=== PATIENT | female | born 1965 | race Caucasian/White ===

== ENCOUNTER → 2021-08-02 07:41 | Outpatient (CLI) | payer BC, SELFPAY ==
--- NOTE | 2021-08-02 | DI.MRI.S_ITS ---
PROCEDURE: MR CERVICAL SPINE WO CON INDICATIONS: Radiculopathy, cervical region TECHNIQUE: Noncontrast sagittal T1 spin echo and T2 fast spin echo, sagittal STIR, foraminal oblique sagittal T2 fast spin echo, and axial gradient echo or T2 fast spin echo through the cervical spine. COMPARISON: None. FINDINGS: Normal cervical spine vertebral body height and alignment. No suspicious focal marrow signal abnormality or bone marrow edema. Prevertebral and paraspinous soft tissues are within normal limits. Normal morphology and signal intensity of the cervical cord. There is no syrinx. C2-C3: Moderate neural foraminal narrowing on the right due to facet and uncovertebral hypertrophy. No neural foraminal narrowing on the left. No spinal canal stenosis. C3-C4: No spinal canal stenosis. Mild bilateral neural foraminal narrowing due to facet and uncovertebral spurring. C4-C5: Mild bilateral neural foraminal narrowing due to facet and uncovertebral hypertrophy. No spinal canal stenosis. Shallow disc bulge and osteophytic ridging. C5-C6: No spinal canal stenosis despite shallow posterior disc-osteophyte complex. Moderate right and mild left neural foraminal stenosis due to facet and uncovertebral hypertrophy. C6-C7: Mild bilateral neural foraminal stenosis due to facet and uncovertebral hypertrophy. Posterior disc osteophyte complex without spinal canal stenosis or mass effect upon the cord. C7-T1: No spinal canal or neural foraminal stenosis. IMPRESSION: Moderate neural foraminal narrowing on the right at C2-C3 and at C5-C6. Other mild degenerative changes as described above. Dictated by: Manohar Waters M.D. on 08/02/2021 at 11:00 Approved by: Manohar Waters M.D. on 08/02/2021 at 11:03
== END ==
PROVIDERS: Referring Provider Physical Medicine & Rehabilitation; Visit Provider Physical Medicine & Rehabilitation
DX: M47.22 Other spondylosis with radiculopathy, cervical region (principal); M48.02 Spinal stenosis, cervical region
CPT/HCPCS: 72141

== ENCOUNTER → 2022-01-08 09:00 | Outpatient (CLI) | payer BC, SELFPAY ==
--- NOTE | 2022-01-08 | DI.MG.S_ITS ---
BILATERAL DIGITAL SCREENING MAMMOGRAM 3D/2D WITH CAD: 01/08/2022 CLINICAL: Routine screening. Family history of breast cancer. Comparison is made to exam dated: 11/09/2020 mammogram - outside location. The tissue of both breasts is heterogeneously dense. This may lower the sensitivity of mammography. Current study was also evaluated with a Computer Aided Detection (CAD) system. No significant masses, calcifications, or other findings are seen in either breast. There has been no significant interval change. IMPRESSION: NEGATIVE There is no mammographic evidence of malignancy. A 1 year screening mammogram is recommended. Based on the Tyrer Cuzick model (a risk assessment model) the patient's lifetime risk is 14.8% and her 10 year risk is 5.2%. According to the ACR, ACS, and NCCN guidelines, an annual breast MRI exam along with mammogram is recommended if the patient's lifetime risk is 20% or greater. This exam was interpreted at Station ID: [id number]. NOTE: For mammograms, a report in lay terms will be sent to the patient. Approximately 15% of breast malignancies will not be visualized mammographically. In the management of a palpable breast mass, a negative mammogram must not discourage biopsy of a clinically suspicious lesion. Electronically Signed By: Russell moore/mark:01/10/2022 14:17:35 letter sent: Normal Exam ACR BI-RADS Category 1: Negative [id number]
== END ==
PROVIDERS: PCP Family Medicine; Referring Provider Family Medicine; Visit Provider Family Medicine
DX: Z12.31 Encounter for screening mammogram for malignant neoplasm of breast (principal); Z80.3 Family history of malignant neoplasm of breast
CPT/HCPCS: 77063; 77067

== ENCOUNTER → 2024-02-17 08:29 | Outpatient (CLI) | payer BC, SELFPAY ==
--- NOTE | 2024-02-17 08:30 | DI.MG.S_ITS ---
BILATERAL DIGITAL SCREENING MAMMOGRAM 3D/2D WITH CAD: 02/17/2024 CLINICAL: Routine screening. Family history of breast cancer. Comparison is made to exams dated: 01/08/2022 mammogram - [facility] and 11/09/2020 mammogram - outside [facility]. Both breasts are heterogeneously dense, which may obscure small masses (category c / 51-75% glandular tissue). Current study was also evaluated with a Computer Aided Detection (CAD) system. There is a focal asymmetry in the right breast lower inner quadrant at middle depth. No other significant masses, calcifications, or other findings are seen in either breast. IMPRESSION: INCOMPLETE: NEEDS ADDITIONAL IMAGING EVALUATION The focal asymmetry in the right breast is indeterminate. A diagnostic mammogram and ultrasound is recommended. Based on the Tyrer Cuzick model (a risk assessment model) the patient's lifetime risk is 14.4% and her 10 year risk is 5.6%. According to the ACR, ACS, and NCCN guidelines, an annual breast MRI exam along with mammogram is recommended if the patient's lifetime risk is 20% or greater. This exam was interpreted at Station ID: [id number]. NOTE: For mammograms, a report in lay terms will be sent to the patient. Approximately 15% of breast malignancies will not be visualized mammographically. In the management of a palpable breast mass, a negative mammogram must not discourage biopsy of a clinically suspicious lesion. Electronically Signed By: Hiral Hui M.D., Ph.D. eb/:02/20/2024 09:23:57 letter sent: Additional Imaging Needed ACR BI-RADS Category 0: Incomplete 3340F
== END ==
PROVIDERS: PCP Family Medicine; Referring Provider Family Medicine; Visit Provider Family Medicine
DX: Z12.31 Encounter for screening mammogram for malignant neoplasm of breast (principal); Z80.3 Family history of malignant neoplasm of breast
CPT/HCPCS: 77063; 77067

== ENCOUNTER → 2024-03-11 13:41 | Outpatient (CLI) | payer BC, SELFPAY ==
--- NOTE | 2024-03-11 13:42 | DI.US.S_ITS ---
LIMITED ULTRASOUND OF RIGHT BREAST: 03/11/2024 CLINICAL: Patient returns today to evaluate a focal asymmetry in the right breast. Comparison is made to exams dated: 03/11/2024 mammogram, 02/17/2024 mammogram, 01/08/2022 mammogram - [facility], and 11/09/2020 mammogram - outside location. Color flow and real-time ultrasound of the right breast 4 o'clock region were performed. Kimbrough scale images of the real-time examination were reviewed. There is a benign 0.6 cm simple cyst in the right breast at 4 o'clock, 3 cm from the nipple. This correlates with mammography findings. IMPRESSION: BENIGN Right breast 0.6 cm simple cyst at 4 o'clock position is benign. No mammographic or no sonographic evidence of malignancy. A 1 year screening mammogram is recommended. Findings and recommendations were conveyed to the patient during today's evaluation. This exam was interpreted at Station ID: [id number]. Electronically Signed By: Hiral Hui M.D., Ph.D. eb/:03/12/2024 17:19:02 letter sent: Normal Exam ACR BI-RADS Category 2: Benign
--- NOTE | 2024-03-11 13:42 | DI.MG.S_ITS ---
UNILATERAL RIGHT DIGITAL DIAGNOSTIC MAMMOGRAM 3D/2D: 03/11/2024 CLINICAL: Additional evaluation requested from prior study. Comparison is made to exams dated: 02/17/2024 mammogram, 01/08/2022 mammogram - [facility], and 11/09/2020 mammogram - outside location. The breasts are heterogeneously dense, which may obscure small masses (category c / 51-75% glandular tissue). There is a 0.6 cm oval mass with a circumscribed margin in the right breast at 4 o'clock middle depth. This corresponds to finding seen on recent screening mammogram. No other significant masses or calcifications are seen in the breast. IMPRESSION: INCOMPLETE: NEED ADDITIONAL IMAGING EVALUATION The 0.6 cm oval mass in the right breast is indeterminate. An ultrasound is recommended for further evaluation and is scheduled to immediately follow this examination. Based on the Tyrer Cuzick model (a risk assessment model) the patient's lifetime risk is 14.4% and her 10 year risk is 5.6%. According to the ACR, ACS, and NCCN guidelines, an annual breast MRI exam along with mammogram is recommended if the patient's lifetime risk is 20% or greater. This exam was interpreted at Station ID: [id number]. NOTE: For mammograms, a report in lay terms will be sent to the patient. Approximately 15% of breast malignancies will not be visualized mammographically. In the management of a palpable breast mass, a negative mammogram must not discourage biopsy of a clinically suspicious lesion. Electronically Signed By: Hiral Hui M.D., Ph.D. eb/:03/12/2024 17:17:05 ACR BI-RADS Category 0: Incomplete: Need Additional Imaging Evaluation
== END ==
LOC: MAMMO 13:41
PROVIDERS: PCP Family Medicine; Referring Provider Family Medicine; Visit Provider Family Medicine
DX: R92.8 Other abnormal and inconclusive findings on diagnostic imaging of breast (principal); N60.01 Solitary cyst of right breast; R92.333 Mammographic heterogeneous density, bilateral breasts
CPT/HCPCS: 76642; 77065; G0279

== ENCOUNTER → 2025-05-30 17:12 | Outpatient (CLI) | payer BC, SELFPAY ==
--- NOTE | 2025-05-30 17:13 | DI.MG.S_ITS ---
MM screening mammo BI: 05/30/2025. BI-RADS: 1 CLINICAL: 59-year old female for bilateral screening mammogram. Tyrer-Cuzick lifetime risk of 20.7%. Current reported family history of breast cancer: mother. PRIOR EXAMS 03/11/2024, 02/17/2024, 01/08/2022. MAMMOGRAPHY TECHNIQUE: 2D and 3D (tomosynthesis) digital mammographic views obtained, with additional images as needed for full coverage. Current study was also evaluated with a Computer Aided Detection (CAD) system. DENSITY C. The breasts are heterogeneously dense, which may obscure small masses. MAMMOGRAPHY FINDINGS Bilateral: No suspicious mass, asymmetry, microcalcification, or other abnormality seen. IMPRESSION: * No evidence of malignancy. RECOMMENDATIONS Bilateral * According to the Tyrer-Cuzick Risk Assessment Model, based on the information provided your patient has a greater than 20% lifetime risk for developing breast cancer. Consider supplemental screening with breast MRI and participation in a high risk screening program. * Annual screening mammography. OVERALL ASSESSMENT CATEGORY BI-RADS-1: Negative. The [employer] recommends annual screening mammography beginning at age 40 for women with average risk of breast cancer. ELECTRONICALLY SIGNED: Neli Morales M.D. on 06/02/2025 at 08:33:44 AM PT Interpreting Station ID: [id number]
== END ==
PROVIDERS: PCP Family Medicine; Referring Provider Family Medicine; Visit Provider Family Medicine
DX: Z12.31 Encounter for screening mammogram for malignant neoplasm of breast (principal); Z80.3 Family history of malignant neoplasm of breast; R92.333 Mammographic heterogeneous density, bilateral breasts
CPT/HCPCS: 77063; 77067